=== PATIENT | female | born 1945 | race Caucasian/White ===

== ENCOUNTER 2022-06-18 10:00 | Outpatient (RCR) | payer MEDICARE, OTHER, SELFPAY | END 2023-01-23 23:59 | disposition home or self-care (01) | PROVIDERS: Visit Provider Student in an Organized Health Care Education/Training Program | DX: M54.50 Low back pain, unspecified (principal); Z51.89 Encounter for other specified aftercare | CPT/HCPCS: 97110; 97161; 97530 ==

== ENCOUNTER 2023-11-03 08:15 | Outpatient (RCR) | payer MEDICARE, OTHER, SELFPAY | END 2024-02-03 17:03 | disposition home or self-care (01) | PROVIDERS: Visit Provider Family Medicine | DX: M25.561 Pain in right knee (principal); M25.562 Pain in left knee; G89.29 Other chronic pain; R29.898 Other symptoms and signs involving the musculoskeletal system; Z51.89 Encounter for other specified aftercare | CPT/HCPCS: 97110; 97162 ==

== ENCOUNTER 2023-12-24 07:30 | Day surgery (SDC) | payer MEDICARE, OTHER, SELFPAY ==
[2023-12-24] VITALS (25 sets, daily range): BP systolic 99–151; BP diastolic 50–75; PULSE 51–68; RESP 16; TEMP 35.9–36.6; O2SAT 93–100; BMI 24.6
--- NOTE | 2023-12-24 07:44 | W.PM.H&PU ---
History & Physical Update History & Physical Update H&P Reviewed and patient assessed: No changes noted
--- NOTE | 2023-12-24 07:46 | CRLHL7_ITS ---
For Patients: As a result of the Century Cures Act, medical imaging exams and procedure reports are released immediately into your electronic medical record. You may view this report before your referring provider. If you have questions, please contact your health care provider. Indication: LT TKA Technique: Two views left knee Findings/Impression: Hardware from a left total knee arthroplasty is in satisfactory position. Bone alignment is normal. No sign of acute fracture. Postop changes are within normal limits. Dictated by Oneal Martinez MD @ 12/25/2023 11:07:27 AM (Electronically Signed)
[2023-12-24] MEDS: ACETAMINOPHEN 500 MG TABLET 1000 MG PO ×3 (07:55→20:39)
[2023-12-24] MEDS: OXYCODONE (CR) 10 MG TAB.ER.12H PO (07:55)
[2023-12-24] MEDS: SODIUM CHLORIDE 0.9 % (FLUSH) 10 ML SYRINGE IVF (08:00)
[2023-12-24] MEDS: LACTATED RINGERS 1000 ML 1,000 ML 100 ML IV ×2 (08:00→09:34)
[2023-12-24] MEDS: MIDAZOLAM HCL 1 MG/ML inj IVP (08:55)
[2023-12-24] MEDS: fentaNYL 100 MCG/2 ML inj IVP (08:55)
--- NOTE | 2023-12-24 09:07 | W.PM.NB ---
Nerve Block Nerve Block Time Seen by Provider: 09:00 Date Seen: 12/24/23 Type of block requested by surgeon for post-operative analgesia: adductor canal Side: left Time out performed: Yes Verification of patient name: Yes Verification of date of : Yes Site marking: site marked Name of person performing procedure: Oz Egan Continuous monitoring Was continuous monitoring of O2 sat, B/P, secured entrance monitor, recorded every 15 minutes?: Yes Procedure Checklist: sterile prep, needles and gloves Ultrasound guided. Images saved: Yes Medications given in 5ml increments after negative aspiration: Ropivicaine %: 0.5 mL: 30 Needle gauge: 20 Decadron (mg): 10 Precedex (mcg): 25 Patient tolerated procedure well: Yes Additional comments: injected in 5ml increments after negative aspiration Block Charges Block Charge (with Pro Fee): Femoral Nerve Use of Ultrasound Machine for Block: Yes- US Guidance/pain block
--- NOTE | 2023-12-24 09:08 | P.NB_ITS ---
Nerve Block Nerve Block Time Seen by Provider: 09:00 Date Seen: 12/24/23 Type of block requested by surgeon for post-operative analgesia: geniculars Side: left Time out performed: Yes Verification of patient name: Yes Verification of date of : Yes Site marking: site marked Name of person performing procedure: Oz Egan Continuous monitoring Was continuous monitoring of O2 sat, B/P, cardiac rehabilitation program director, recorded every 15 minutes?: Yes Procedure Checklist: sterile prep, needles and gloves Ultrasound guided. Images saved: No Medications given in 5ml increments after negative aspiration: Ropivicaine %: 0.5 mL: 12 Needle gauge: 25 Patient tolerated procedure well: Yes Additional comments: Injected in 4ml increments after negative aspiration Block Charges Block Charge (with Pro Fee): Genicular Nerve Block Use of Ultrasound Machine for Block: No
--- NOTE | 2023-12-24 09:11 | SUR.PREOP ---
TIME?OUT:?0855 PT/Dorian SHERMAN RN/Anthony WALLER CRNA?VERIFICATION?OF?SURGICAL?SITE,?PROCEDURE,?AND?CONSENT OBTAINED?PRIOR?TO?INVASIVE?PROCEDURE.
[2023-12-24] MEDS: CEFAZOLIN 2 GM in 0.9 % SODIUM CHLORIDE Mini-bag 100 ML IVPB (09:33)
--- NOTE | 2023-12-24 09:52 | W.ANESCHARGE ---
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
--- NOTE | 2023-12-24 10:44 | PM.ORPRC ---
Procedure Note Date of procedure: 12/24/23 Procedure: PREOPERATIVE DIAGNOSIS: 1. Left knee osteoarthritis, primary, severe POSTOPERATIVE DIAGNOSIS: 1. Left knee osteoarthritis, primary, severe PROCEDURE: 1. Left total knee arthroplasty - subvastus SURGEON: Moises Gilbert MD. FLOOR PRESS OPERATOR: Itzel Al PA-C - Of note, a skilled temporary administrative assistant was critical for this case to aid in patient positioning, tissue retraction, limb manipulation/positioning, and closure. ANESTHESIA: Spinal anesthetic EBL: 50ml IMPLANTS: DePuy J&J all cemented TKA - Attune PS femur size 5 narrow, size 3 tibia, 5 poly spacer, 35 mm patella TOURNIQUET: 90 min at 300 torr COMPLICATIONS: None evident INDICATIONS: The patient is a pleasant 78-year-old female who has experienced severe left knee pain and difficulty bearing weight. Workup included x-rays which revealed severe osteoarthrosis in the knee. Given the deformity, the dysfunction, and the pain, as well as the failure of nonoperative management, recommendation was made for surgery. FINDINGS: Extreme osteoarthritic change patellofemoral compartment with substantial erosion into the femur and substantial lateral translation to the patella. Hypoplastic lateral femoral condyle. Degenerative meniscus pathology. Moderate effusion upon entering the joint. DESCRIPTION OF PROCEDURE: Following a thorough discussion of risks, benefits, and alternatives consent was obtained and the left knee was marked. The patient was brought to the operating room and placed supine on the operating table. Induction of anesthesia was undertaken. 1 g IV Ancef and 1 g tranexamic acid was administered within 1 hr of incision preoperatively. Proper time-out was performed identifying proper patient, site, procedure. The operative extremity was prepped and draped in the appropriate sterile fashion using ChloraPrep after the patient was positioned supine with all bony prominences well padded. A longitudinal, anterior, midline skin incision was made starting approximately 3cm proximal to the superior pole of the patella and advanced distal to the tibial tubercle. A subvastus approach was utilized. A medial subperiosteal sleeve was created with knife, liu elevator and curved osteotome. The retropatellar fatpad was resected and the synovium in the suprapatellar pouch excised to visualize the anterior femoral cortex. Femoral preparation was performed via an intramedullary guide. Step drill allowed access into the femoral canal. The distal cutting guide was placed with 5 ? of valgus and 10 mm cut on the distal femur. Femur was sized using a posterior referencing guide in addition to trans epicondylar axis and Michele's line reference in 7 ? of external rotation. This found have a best fit with the sizing noted above. The 4 in 1 cutting block was then placed, and the distal femur shaped accordingly. The box cut was then created and the trial implant inserted to confirm appropriate fit. We turned our attention to the proximal tibia. Extramedullary guide was utilized for cutting with the goal of being 90 degree cut from the mechanical axis of the tibia in the varus/valgus plane utilizing tibial crest as the primary alignment. Initially a 2 mm resection was performed from the medial tibial plateau. Ultimately, balancing was achieved in both flexion and extension in both varus and valgus. The knee was able to achieve full extension as well comfortably. The patella was initially measured and found have a thickness of 17 mm. It was resected back to approximately 14 mm. It was sized to be a best fit with as noted above. This was drilled, trial placed. All trials were placed and found to have an excellent stability and balance. At this stage, trial implants were removed, the knee was thoroughly irrigated with normal saline, and the cement was mixed. After irrigation, the knee was thoroughly dried, and cement placed, with the real tibial and femoral implants placed along with the patella. Trial poly spacer was placed and confirmed to have excellent range of motion and full extension, and the real poly spacer opened and inserted. All extra cement was removed, and a 3 min Betadine soak performed. Finally, a final irrigation round with normal saline was performed. Closure performed with 0 PDS and #0 Stratafix for the quad tendon/retinaculum. 2-0 Vicryl/Stratafix for the subcutaneous and 4-0 Monocryl for subcuticular closure. Dressings were applied and the patient was awoken from anesthesia after the tourniquet deflated and transferred the PACU in stable condition. A skilled temporary administrative assistant was critical for this case to aid in patient positioning, tissue retraction, bone exposure, limb manipulation/positioning, patient safety, and closure. PLAN: 1. Weight bear as tolerated operative extremity. 2. 23 hr perioperative antibiotics. 3. Ice. 4. PT/OT consults for ambulation assistance/mobility education. 5. Social work consult for discharge planning. 6. DVT prophylaxis with at SCDs and aspirin twice daily.
--- NOTE | 2023-12-24 11:39 | P.ANES_ITS ---
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
--- NOTE | 2023-12-24 12:07 | SUR.PHASEI ---
xray here to take images as ordered
[2023-12-24] MEDS: OXYCODONE 5 MG TABLET PO ×4 (14:47→23:24)
[2023-12-24] MEDS: CEFAZOLIN 1 GM in 0.9 % SODIUM CHLORIDE Mini-bag 100 ML IVPB ×2 (15:34→23:24)
--- NOTE | 2023-12-24 16:09 | PC.NURSE ---
End of Shift: patient up to floor at 1230. at bedside. Patient alert and oriented. Denies N/V/SOB. Patient up to BR x1 voided 200cc. Tolerating a reg. diet. Patient up to chair after BR and tolerated activity well. Patient rated pain with movement 4/10 PRN oxy administered x1 with scheduled tylenol. Patient on RA.
--- NOTE | 2023-12-24 16:55 | P.IMCN_ITS ---
<Statement entered by Lorie Tian - 12/24/23 18:21> ILorie personally scribed for Dr. Hayes on 12/24/2023 at 1819. Documented by User: Lorie Tian 12/24/23 18:21 Date of Consult Patient: Haily Patient Consult date: 12/24/23 Requesting Physician: Orthopedics Primary Care Provider: Dr. Varma Consult Narrative Reason for consult: Post-op, HTN, seizures, DM2 Narrative: Carin Cardenas is a 78 year old female presenting inpatient after a L knee replacement. She does not have any medical concerns for the hospital team at this point. Overall she is feeling good and her pain is under control. She rates her current pain a 3 on a scale of 0-10. She states that her pain medication this afternoon helped and she expresses she wants to stay ahead of her pain/stay on a routine schedule. She was able to get out of bed and into the chair with PT and OT this afternoon and it went well. Her is bedside and currently lives with her. She states he will be able to help her at home along with her children that are visiting. Review of Systems Cardio: Denies: chest pain, palpitations, edema, swelling of feet/ankles, lightheadedness or shortness of breath with exertion Resp: Denies: shortness of breath Musculo: Reports: joint pain [facility] Medical History (Updated 12/24/23 @ 18:13 by Lorie Tian) Osteopenia ?M85.80 - Other specified disorders of bone density and structure, unspecified site (ICD-10) Type 2 diabetes mellitus ?E11.9 - Type 2 diabetes mellitus without complications (ICD-10) Seizure disorder ?G40.909 - Epilepsy, unspecified, not intractable, without status epilepticus (ICD-10) HTN (hypertension) ?I10 - Essential (primary) hypertension (ICD-10) Glaucoma ?H40.9 - Unspecified glaucoma (ICD-10) Personal history of colonic polyps ?Z86.010 - Personal history of colonic polyps (ICD-10) Hyperlipidemia ?E78.5 - Hyperlipidemia, unspecified (ICD-10) Anxiety ?F41.9 - Anxiety disorder, unspecified (ICD-10) Hypothyroidism ?E03.9 - Hypothyroidism, unspecified (ICD-10) History of coronary angiogram (2003) ?Z98.890 - Other specified postprocedural states (ICD-10) Meningioma ?D32.9 - Benign neoplasm of meninges, unspecified (ICD-10) Diabetes ?E11.9 - Type 2 diabetes mellitus without complications (ICD-10) Osteoarthritis of patellofemoral joints of both knees ?M17.0 - Bilateral primary osteoarthritis of knee (ICD-10) BCC (basal cell carcinoma), breast ?C44.511 - Basal cell carcinoma of skin of breast (ICD-10) Surgical History (Updated 12/24/23 @ 18:12 by Lorie Tian) History of YAG laser capsulotomy of lens of right eye (06/17/18) ?Z98.41 - Cataract extraction status, right eye (ICD-10) History of wisdom tooth extraction ?K08.409 - Partial loss of teeth, unspecified cause, unspecified class (ICD- 10) Status post left breast lumpectomy ?Z98.890 - Other specified postprocedural states (ICD-10) History of tonsillectomy ?Z90.89 - Acquired absence of other organs (ICD-10) Status post hysteroscopic polypectomy (06/10/12) ?Z98.890 - Other specified postprocedural states (ICD-10) History of phacoemulsification of cataract of both eyes with intraocular lens implantation (04/2013) ?Z98.41 - Cataract extraction status, right eye (ICD-10) ?Z98.42 - Cataract extraction status, left eye (ICD-10) ?Z96.1 - Presence of intraocular lens (ICD-10) Status post biopsy of skin (09/10/23) ?Z98.890 - Other specified postprocedural states (ICD-10) Family History Grandfather Myocardial infarction Mother High blood pressure Social History Smoking Status: Never smoker Do you use any of these nicotine containing products: None Second hand tobacco smoke exposure: No How often do you have a drink containing alcohol: never AUDIT-C Alcohol total score: 0 Non-prescribed substance use: denies use Caffeine: Yes Meds Home Medications and Allergies Home Medications ?Medication ?Instructions ?Recorded ?Confirmed ?Type fenofibrate micronized 134 mg 134 mg PO DAILY 11/07/23 12/24/23 History capsule lamotrigine 100 mg tablet 100 mg PO 3XD 11/07/23 12/24/23 History latanoprost 0.005 % eye drops drp ophthalmic (eye) 11/07/23 11/07/23 History levothyroxine 25 mcg tablet 25 mcg PO DAILY 11/07/23 12/24/23 History metformin 500 mg tablet 500 mg PO DAILY 11/07/23 12/24/23 History metoprolol succinate 50 mg 50 mg PO BID 11/07/23 12/24/23 History tablet,extended release 24 hr triamterene 37.5 1 cap PO DAILY 11/07/23 12/24/23 History mg-hydrochlorothiazide 25 mg capsule aspirin 81 mg tablet,delayed 81 mg PO DAILY 12/22/23 12/24/23 History release cholecalciferol (vitamin D3) 25 1,000 unit PO DAILY 12/22/23 12/24/23 History mcg (1,000 unit) capsule docusate sodium 100 mg capsule 100 mg PO DAILY 12/22/23 12/24/23 History fenofibrate micronized 134 mg 134 mg PO DAILY 12/22/23 12/24/23 History capsule lamotrigine 100 mg tablet 100 mg PO Q12H 12/22/23 12/24/23 History latanoprost 0.005 % eye drops 1 drp ophthalmic (eye) QPM 12/22/23 12/24/23 History levothyroxine 25 mcg capsule 25 mcg PO DAILY 12/22/23 12/24/23 History magnesium 250 mg tablet 250 mg PO DAILY 12/22/23 12/24/23 History Allergies Allergy/AdvReac Type Severity Reaction Status Date / Time No Known Allergies Allergy Unknown Verified 12/24/23 07:48 Exam Const: Vital Signs, click to edit/add: Vital Signs - 24 hr 12/24/23 08:07 12/24/23 08:55 12/24/23 09:00 Temperature 97.8 F Pulse Rate 58 L 54 L 53 L Pulse Rate [Pulse Oximeter] Respiratory Rate 16 16 16 Blood Pressure 134/75 150/73 H 132/61 Blood Pressure [Le ft Arm] Pulse Oximetry 99 100 100 Oxygen Delivery Me thod Room Air Nasal Cannula Nasal Cannula Oxygen Flow Rate 3 3 12/24/23 11:38 12/24/23 11:45 12/24/23 11:50 Temperature 97.3 F L Pulse Rate 57 L 55 L 55 L Pulse Rate [Pulse Oximeter] Respiratory Rate 16 16 16 Blood Pressure 99/50 L 104/59 L 104/59 L Blood Pressure [Le ft Arm] Pulse Oximetry 95 95 95 Oxygen Delivery Me thod Room Air Room Air Room Air Oxygen Flow Rate 12/24/23 11:55 12/24/23 12:01 12/24/23 12:06 Temperature 97.0 F L 97.0 F L Pulse Rate 58 L 54 L 56 L Pulse Rate [Pulse Oximeter] Respiratory Rate 16 16 16 Blood Pressure 110/62 108/59 L 112/59 L Blood Pressure [Le ft Arm] Pulse Oximetry 94 97 97 Oxygen Delivery Me thod Room Air Room Air Room Air Oxygen Flow Rate 12/24/23 12:10 12/24/23 12:20 12/24/23 12:29 Temperature 97.4 F L 96.7 F L 96.7 F L Pulse Rate 60 52 L Pulse Rate [Pulse Oximeter] 52 L Respiratory Rate 16 16 16 Blood Pressure 115/60 117/62 Blood Pressure [Le ft Arm] 117/62 Pulse Oximetry 95 93 93 Oxygen Delivery Me thod Room Air Room Air Room Air Oxygen Flow Rate 12/24/23 12:30 12/24/23 12:45 12/24/23 13:00 Temperature 97.0 F L 97.0 F L 97.0 F L Pulse Rate 52 L 52 L 51 L Pulse Rate [Pulse Oximeter] Respiratory Rate 16 16 16 Blood Pressure 118/62 116/59 L 122/62 Blood Pressure [Le ft Arm] Pulse Oximetry 96 95 98 Oxygen Delivery Me thod Room Air Room Air Room Air Oxygen Flow Rate 12/24/23 13:15 12/24/23 13:45 12/24/23 14:15 Temperature 97.0 F L 97.0 F L 97.0 F L Pulse Rate 62 60 60 Pulse Rate [Pulse Oximeter] Respiratory Rate 16 16 16 Blood Pressure 123/65 120/57 L 123/73 Blood Pressure [Le ft Arm] Pulse Oximetry 94 100 99 Oxygen Delivery Me thod Room Air Room Air Room Air Oxygen Flow Rate 12/24/23 15:00 12/24/23 15:00 12/24/23 15:00 Temperature 97.0 F L Pulse Rate 60 Pulse Rate [Pulse Oximeter] Respiratory Rate 16 Blood Pressure 151/66 H Blood Pressure [Le ft Arm] Pulse Oximetry 99 98 98 Oxygen Delivery Me thod Room Air Room Air Oxygen Flow Rate Common normals: no apparent distress, oriented x3 and alert General appearance: cooperative Orientation/consciousness: Yes oriented to person, Yes oriented to place and Yes oriented to time Resp: Common normals: clear to auscultation bilaterally Auscultation: clear to auscultation bilaterally; no crackles, no rales, no rhonchi, no wheezes and lung sounds not diminished Cardio: Common normals: regular rate, regular rhythm, S1 normal heart sound, S2 normal heart sound, no gallops, no clicks and no murmurs Rate: regular rate Rhythm: regular rhythm Heart sounds: S1 normal and S2 normal Extremity: Left lower extremity: lower leg (no erythema around the surgical site or calf) Left lower leg: inspection Neuro: Common normals: oriented x3 Sensorium/orientation: alert, oriented to person, oriented to place and oriented to time Speech: speech normal Psych: Common normals: thought process normal, cooperative, affect normal and speech normal Speech: normal speech Thought process: normal thought process Assessment and Plan Assessment and plan (1) Osteoarthritis of left knee: Problem comment: bone on bone patellofemoral, mild medial and lateral Status: Acute (2) Status post left knee replacement: Problem comment: - 12/24/2023: Dr. Moises Gilbert, [facility] Status: Acute (3) HTN (hypertension): Problem comment: - Continue current medications while in the hospital. Status: Acute (4) Type 2 diabetes mellitus: Problem comment: - Continue current medications while in the hospital. - Add QID sliding scale insulin while in the hospital. Status: Acute (5) Seizure disorder: Problem comment: - Continue current medications while in the hospital. Status: Acute Plan - No new medical concerns from a hospitalist standpoint. - I agree with perioperative antibiotic administration. - I agree with the VTE prophylaxis. - Will follow with orthopedic surgery team while in the hospital. - Hospitalist team has competed their portion of the discharge orders. Total Time Spent Total Time Spent: 45 minutes Documented by User: Atilio Hayes MD 12/24/23 18:42 Consult Narrative Narrative: Carin Cardenas is a 78 year old female presenting inpatient after a L knee replacement. She does not have any new medical concerns for the hospital team at this point. Overall she is feeling good and her pain is under control. She rates her current pain a 3 on a scale of 0-10. She states that her pain medication this afternoon helped and she expresses she wants to stay ahead of her pain/stay on a routine schedule. She was able to get out of bed and into the chair with PT and OT this afternoon and it went well. Her is bedside and currently lives with her. She states he will be able to help her at home along with her children that are visiting. Review of Systems Status of ROS: Reports: 6 or more systems reviewed and unremarkable except as noted in History and below [facility] Medical History (Updated 12/24/23 @ 18:13 by Lorie Tian) Osteopenia ?M85.80 - Other specified disorders of bone density and structure, unspecified site (ICD-10) Type 2 diabetes mellitus ?E11.9 - Type 2 diabetes mellitus without complications (ICD-10) Seizure disorder ?G40.909 - Epilepsy, unspecified, not intractable, without status epilepticus (ICD-10) HTN (hypertension) ?I10 - Essential (primary) hypertension (ICD-10) Glaucoma ?H40.9 - Unspecified glaucoma (ICD-10) Personal history of colonic polyps ?Z86.010 - Personal history of colonic polyps (ICD-10) Hyperlipidemia ?E78.5 - Hyperlipidemia, unspecified (ICD-10) Anxiety ?F41.9 - Anxiety disorder, unspecified (ICD-10) Hypothyroidism ?E03.9 - Hypothyroidism, unspecified (ICD-10) History of coronary angiogram (2003) ?Z98.890 - Other specified postprocedural states (ICD-10) Meningioma ?D32.9 - Benign neoplasm of meninges, unspecified (ICD-10) Diabetes ?E11.9 - Type 2 diabetes mellitus without complications (ICD-10) Osteoarthritis of patellofemoral joints of both knees ?M17.0 - Bilateral primary osteoarthritis of knee (ICD-10) BCC (basal cell carcinoma), breast ?C44.511 - Basal cell carcinoma of skin of breast (ICD-10) Surgical History (Updated 12/24/23 @ 18:12 by Lorie Tian) History of YAG laser capsulotomy of lens of right eye (06/17/18) ?Z98.41 - Cataract extraction status, right eye (ICD-10) History of wisdom tooth extraction ?K08.409 - Partial loss of teeth, unspecified cause, unspecified class (ICD- 10) Status post left breast lumpectomy ?Z98.890 - Other specified postprocedural states (ICD-10) History of tonsillectomy ?Z90.89 - Acquired absence of other organs (ICD-10) Status post hysteroscopic polypectomy (06/10/12) ?Z98.890 - Other specified postprocedural states (ICD-10) History of phacoemulsification of cataract of both eyes with intraocular lens implantation (04/2013) ?Z98.41 - Cataract extraction status, right eye (ICD-10) ?Z98.42 - Cataract extraction status, left eye (ICD-10) ?Z96.1 - Presence of intraocular lens (ICD-10) Status post biopsy of skin (09/10/23) ?Z98.890 - Other specified postprocedural states (ICD-10) Family History Grandfather Myocardial infarction Mother High blood pressure Social History Smoking Status: Never smoker Do you use any of these nicotine containing products: None Second hand tobacco smoke exposure: No How often do you have a drink containing alcohol: never AUDIT-C Alcohol total score: 0 Non-prescribed substance use: denies use Caffeine: Yes Meds Home Medications and Allergies Home Medications ?Medication ?Instructions ?Recorded ?Confirmed ?Type fenofibrate micronized 134 mg 134 mg PO DAILY 11/07/23 12/24/23 History capsule lamotrigine 100 mg tablet 100 mg PO 3XD 11/07/23 12/24/23 History latanoprost 0.005 % eye drops drp ophthalmic (eye) 11/07/23 11/07/23 History levothyroxine 25 mcg tablet 25 mcg PO DAILY 11/07/23 12/24/23 History metformin 500 mg tablet 500 mg PO DAILY 11/07/23 12/24/23 History metoprolol succinate 50 mg 50 mg PO BID 11/07/23 12/24/23 History tablet,extended release 24 hr triamterene 37.5 1 cap PO DAILY 11/07/23 12/24/23 History mg-hydrochlorothiazide 25 mg capsule aspirin 81 mg tablet,delayed 81 mg PO DAILY 12/22/23 12/24/23 History release cholecalciferol (vitamin D3) 25 1,000 unit PO DAILY 12/22/23 12/24/23 History mcg (1,000 unit) capsule docusate sodium 100 mg capsule 100 mg PO DAILY 12/22/23 12/24/23 History fenofibrate micronized 134 mg 134 mg PO DAILY 12/22/23 12/24/23 History capsule lamotrigine 100 mg tablet 100 mg PO Q12H 12/22/23 12/24/23 History latanoprost 0.005 % eye drops 1 drp ophthalmic (eye) QPM 12/22/23 12/24/23 History levothyroxine 25 mcg capsule 25 mcg PO DAILY 12/22/23 12/24/23 History magnesium 250 mg tablet 250 mg PO DAILY 12/22/23 12/24/23 History Allergies Allergy/AdvReac Type Severity Reaction Status Date / Time No Known Allergies Allergy Unknown Verified 12/24/23 07:48 Assessment and Plan Assessment and plan (1) Osteoarthritis of left knee: Problem comment: bone on bone patellofemoral, mild medial and lateral Status: Acute (2) Status post left knee replacement: Problem comment: - 12/24/2023: Dr. Moises Gilbert, [facility] Status: Acute (3) HTN (hypertension): Problem comment: - Continue current medications while in the hospital. Status: Acute (4) Type 2 diabetes mellitus: Problem comment: - Continue current medications while in the hospital. - Add QID sliding scale insulin while in the hospital. Status: Acute (5) Seizure disorder: Problem comment: - Continue current medications while in the hospital. Status: Acute
[2023-12-24] MEDS: ASPIRIN 81 MG TABLET EC PO (20:39)
[2023-12-24] MEDS: SENNOSIDES 1 TAB TABLET 2 TAB PO (20:39)
[2023-12-24] MEDS: lamoTRIgine 100 MG TABLET 200 MG PO (21:32)
[2023-12-24] MEDS: INSULIN ASPART 100 UNIT/ML SUBCUT (21:33)
--- NOTE | 2023-12-24 23:34 | PC.NURSE ---
End of Shift: Patient pleasant and cooperative. Afebrile. Dressing to left knee C/D/I. CMS intact. Up to chair and bathroom with 1 assist, walker and gait belt. Tolerating regular diet with no nausea. PRN Oxycodone x3 for left knee pain up to 01/13.
[2023-12-25] MEDS: ACETAMINOPHEN 500 MG TABLET 1000 MG PO ×2 (02:14→08:51)
[2023-12-25 02:16] VITALS: BP 114/59; PULSE 60; RESP 16; TEMP 36.6; O2SAT 96
[2023-12-25] MEDS: LEVOTHYROXINE 25 MCG TABLET PO (06:05)
[2023-12-25 06:54] LABS: Basophils Absolute Auto 0.02 K/uL (0.00-0.30); Basophils Percent Auto 0.2 % (0.0-3.0); Hematocrit 32.9 % (33.0-51.0); Hemoglobin* 10.7 gm/dL (12.0-16.0); Immature Granulocytes Abs Auto 0.02 K/uL (0.00-0.30); Immature Granulocytes Pct Auto 0.2 %; Lymphocytes Percent Auto 12.4 % (20-44); Mean Corpuscular HGB Conc 33 gm/dL (32-36); Mean Corpuscular Hemoglobin 31 pg (26-34); Mean Corpuscular Volume 95 fL (80-100); Monocytes Percent Auto 11.7 % (0.0-11.0); Neutrophils Percent Auto 75.5 % (42.0-72.0); Platelet Count* 261 K/uL (140-440); RDW Coefficient of Variation % 12.4 % (11.5-15.5); Red Blood Count 3.45 m/uL (4.00-5.20); White Blood Count* 10.31 K/uL (4.50-11.00)
--- NOTE | 2023-12-25 06:57 | PC.NURSE ---
Pt is alert and oriented x3. Afebrile. Pt reports 3/10 pain in left knee, pain managed with cold pack, and scheduled and PRN medications.?Pt?s left knee dressing is CDI, slight bruising to knee. Pt is up SBA with walker and gait belt, voiding, and tolerating a regular diet. ?
[2023-12-25 07:00] VITALS: BP 112/56; PULSE 67; RESP 16; TEMP 36.4; O2SAT 95
[2023-12-25 07:00] LABS: Slide Review Reflex No
[2023-12-25 07:04] LABS: Potassium* 4.5 mmol/L (3.6-5.1); Sodium* 132 mmol/L (135-149)
[2023-12-25 07:07] LABS: Blood Urea Nitrogen* 23 mg/dL (7-30); Creatinine* 0.6 mg/dL (0.5-1.5); Est. Creatinine Clearance* 35.49; Estimated Glomerular Filt Rate 91 ml/min
[2023-12-25] MEDS: CEFAZOLIN 1 GM in 0.9 % SODIUM CHLORIDE Mini-bag 100 ML IVPB (07:19)
[2023-12-25] MEDS: SENNOSIDES 1 TAB TABLET 2 TAB PO (08:52)
[2023-12-25] MEDS: ASPIRIN 81 MG TABLET EC PO (08:52)
[2023-12-25] MEDS: OXYCODONE 5 MG TABLET PO (08:52)
[2023-12-25] MEDS: lamoTRIgine 100 MG TABLET 200 MG PO (09:26)
--- NOTE | 2023-12-25 11:10 | P.ORPN_ITS ---
Subjective Subjective Date Seen: 12/25/23 Principal diagnosis: Status postop day 1 left total knee arthroplasty Interval history: Patient reports feeling exhausted after physical therapy. She is feeling lightheaded and woozy, having little oral intake today besides some yogurt. She has not received her morning diabetes medicines or insulin sliding scale. No acute events over night. Pain managed with scheduled and PRN medications, ice. DVT prophylaxis: 81 mg aspirin by mouth twice daily, SCDs, walking. Denies fevers, chills, aches, N/V, CP, SOB/HARVEY. No flatus. Ortho Exam Narrative Exam Narrative: -Patient appears comfortable; no apparent acute distress -Alert and oriented times 3 -Operative knee mildly swollen; soft tissues supple; no ecchymosis; no erythematous streaking Warmth appropriate -Surgical dressing clean, dry, intact; no drainage -Bilateral calfs soft; no significant swelling, edema, tenderness, erythema, discoloration, warmth, or palpable cords -2+ DP/PT pulses, intact dermatomes and myotomes distally (5/5 strength) Const Vital Signs, click to edit/add: Vital Signs - 24 hr 12/24/23 11:38 12/24/23 11:45 12/24/23 11:50 Temperature 97.3 F L Pulse Rate 57 L 55 L 55 L Pulse Rate [Pulse Oximeter] Respiratory Rate 16 16 16 Blood Pressure 99/50 L 104/59 L 104/59 L Blood Pressure [Left Arm] Pulse Oximetry 95 95 95 Oxygen Delivery Method Room Air Room Air Room Air 12/24/23 11:55 12/24/23 12:01 12/24/23 12:06 Temperature 97.0 F L 97.0 F L Pulse Rate 58 L 54 L 56 L Pulse Rate [Pulse Oximeter] Respiratory Rate 16 16 16 Blood Pressure 110/62 108/59 L 112/59 L Blood Pressure [Left Arm] Pulse Oximetry 94 97 97 Oxygen Delivery Method Room Air Room Air Room Air 12/24/23 12:10 12/24/23 12:20 12/24/23 12:29 Temperature 97.4 F L 96.7 F L 96.7 F L Pulse Rate 60 52 L Pulse Rate [Pulse Oximeter] 52 L Respiratory Rate 16 16 16 Blood Pressure 115/60 117/62 Blood Pressure [Left Arm] 117/62 Pulse Oximetry 95 93 93 Oxygen Delivery Method Room Air Room Air Room Air 12/24/23 12:30 12/24/23 12:45 12/24/23 13:00 Temperature 97.0 F L 97.0 F L 97.0 F L Pulse Rate 52 L 52 L 51 L Pulse Rate [Pulse Oximeter] Respiratory Rate 16 16 16 Blood Pressure 118/62 116/59 L 122/62 Blood Pressure [Left Arm] Pulse Oximetry 96 95 98 Oxygen Delivery Method Room Air Room Air Room Air 12/24/23 13:15 12/24/23 13:45 12/24/23 14:15 Temperature 97.0 F L 97.0 F L 97.0 F L Pulse Rate 62 60 60 Pulse Rate [Pulse Oximeter] Respiratory Rate 16 16 16 Blood Pressure 123/65 120/57 L 123/73 Blood Pressure [Left Arm] Pulse Oximetry 94 100 99 Oxygen Delivery Method Room Air Room Air Room Air 12/24/23 15:00 12/24/23 15:00 12/24/23 15:00 Temperature 97.0 F L Pulse Rate 60 Pulse Rate [Pulse Oximeter] Respiratory Rate 16 Blood Pressure 151/66 H Blood Pressure [Left Arm] Pulse Oximetry 99 98 98 Oxygen Delivery Method Room Air Room Air 12/24/23 16:00 12/24/23 17:00 12/24/23 18:00 Temperature 97.3 F L 97.6 F Pulse Rate 62 66 68 Pulse Rate [Pulse Oximeter] Respiratory Rate 16 16 16 Blood Pressure 124/63 127/59 L 127/60 Blood Pressure [Left Arm] Pulse Oximetry 98 96 96 Oxygen Delivery Method Room Air Room Air Room Air 12/24/23 19:00 12/24/23 23:00 12/24/23 23:34 Temperature 97.0 F L 97.8 F Pulse Rate Pulse Rate [Pulse Oximeter] 66 60 Respiratory Rate 16 16 Blood Pressure Blood Pressure [Left Arm] 112/64 112/61 Pulse Oximetry 99 100 100 Oxygen Delivery Method Room Air Room Air 12/24/23 23:34 12/25/23 02:16 12/25/23 07:00 Temperature 97.8 F Pulse Rate Pulse Rate [Pulse Oximeter] 60 Respiratory Rate 16 16 Blood Pressure Blood Pressure [Left Arm] 114/59 L Pulse Oximetry 100 96 95 Oxygen Delivery Method Room Air Room Air 12/25/23 07:00 12/25/23 07:00 12/25/23 07:00 Temperature 97.6 F Pulse Rate Pulse Rate [Pulse Oximeter] 67 67 Respiratory Rate 16 16 16 Blood Pressure Blood Pressure [Left Arm] 112/56 L Pulse Oximetry 95 95 Oxygen Delivery Method Room Air Room Air Assessment and Plan Assessment and plan (1) Osteoarthritis of left knee: Problem details: bone on bone patellofemoral, mild medial and lateral Status: Acute (2) Status post left knee replacement: Problem details: - 12/24/2023: Dr. Moises Gilbert, [facility] Status: Acute (3) HTN (hypertension): Problem details: - Continue current medications while in the hospital. Status: Acute (4) Type 2 diabetes mellitus: Problem details: - Continue current medications while in the hospital. - Add QID sliding scale insulin while in the hospital. Status: Acute (5) Seizure disorder: Problem details: - Continue current medications while in the hospital. Status: Acute Plan - Complete 23 hour perioperative antibiotics. - PT/OT consult for education and assistance. - Social work consult for discharge planning - Prescribed analgesics as needed - DVT prophylaxis: 81 mg aspirin by mouth twice daily and SCDs. No need for the Payam bandaging - Anticipation is for discharge to home with spouse, 12/25/2023 if the patient remains medically stable, pain is controlled, and they are safe with mobilization. - I believe her lightheadedness is due to low food intake and oral narcotic medications; she will try a small meal/snack now.
[2023-12-25] MEDS: ONDANSETRON 2 MG/ML inj 4 MG IVP (12:14)
--- NOTE | 2023-12-25 15:08 | PC.NURSE ---
Patient discharged at 1240 to home accompanied by spouse. Patients dressing to C/D/I. IV removed intact. Patient VSS, BP on the softer side, MD aware. BP med held per RANDY Humphrey. Patient c/o slight nausea and PRN zofran administered x1. PRN oxy administered prior to therapies. Patient signed discharge papers and belongings sheet. Patient verbalized understanding.
== END 2023-12-25 12:40 | disposition home or self-care (01) ==
LOC: MEDSURG 12-25 13:59 → OR 12-25 13:59
PROVIDERS: Visit Provider Orthopaedic Surgery Sports Medicine
PROC: (CPT 27447; principal; 2023-12-24 09:15)
DX: M17.12 Unilateral primary osteoarthritis, left knee (principal); G89.18 Other acute postprocedural pain; E11.9 Type 2 diabetes mellitus without complications; R42 Dizziness and giddiness; I10 Essential (primary) hypertension; G40.909 Epilepsy, unspecified, not intractable, without status epilepticus; M85.80 Other specified disorders of bone density and structure, unspecified site; F41.9 Anxiety disorder, unspecified; E03.9 Hypothyroidism, unspecified; E78.5 Hyperlipidemia, unspecified
CPT/HCPCS: 27447; 01402; 36415; 64447; 64454; 73560; 76942; 82565; 82962; 84132; 84295; 84520; 85025; 97110; 97116; 97161; 97165; 97530; 97535; 99100; A9270; C1776; J0690; J1100; J2250; J2405; J2704; J2795; J3010; J7120

== ENCOUNTER 2024-01-27 09:12 | Emergency (ER) | payer MEDICARE, OTHER, SELFPAY ==
[2024-01-27 09:22] VITALS: BP 148/73; PULSE 70; RESP 18; TEMP 36.4; O2SAT 98; BMI 23.9
--- NOTE | 2024-01-27 11:13 | ED.GENADULT ---
HPI - General Adult General Chief complaint: Altered Mental Status Stated complaint: Altered mental status, repeating things Time Seen by Provider: 01/27/24 10:26 History of Present Illness HPI narrative: This 78-year-old female comes in with her because of some temporary confusion in her thinking during which time also her speech was not so well understood. This happened while her was driving and she was a passenger in the car. Her symptoms have completely resolved. The patient states that she awoke this morning and did not feel quite right and took a home test which was negative for COVID. She has not had any fever or dysuria or cough symptoms. She does have a remote history of a meningioma that was removed surgically 18 years ago. She had 2 ups aunt's seizures afterwards and is following with a neurologist annually and has been doing well. She does take lamotrigine. Today she did not show any sign of seizure activity that was involuntary motor activity. She does not report any headache. She arrives here with normal vital signs and states that she feels back to normal. She did have her left knee replaced surgically a month or 2 ago and has been undergoing physical therapy. She has been taking 2 aspirin daily up until last week. She does not report any increased leg swelling and has not had any chest pain or shortness of breath. Related Data Home Medications ?Medication ?Instructions ?Recorded ?Confirmed fenofibrate micronized 134 mg 134 mg PO DAILY 11/07/23 01/01/24 capsule lamotrigine 100 mg tablet 100 mg PO 3XD 11/07/23 01/01/24 latanoprost 0.005 % eye drops drp ophthalmic (eye) 11/07/23 01/01/24 levothyroxine 25 mcg tablet 25 mcg PO DAILY 11/07/23 01/01/24 metformin 500 mg tablet 500 mg PO DAILY 11/07/23 01/01/24 metoprolol succinate 50 mg 50 mg PO BID 11/07/23 01/01/24 tablet,extended release 24 hr triamterene 37.5 1 cap PO DAILY 11/07/23 01/01/24 mg-hydrochlorothiazide 25 mg capsule aspirin 81 mg tablet,delayed 81 mg PO DAILY 12/22/23 01/01/24 release cholecalciferol (vitamin D3) 25 1,000 unit PO DAILY 12/22/23 01/01/24 mcg (1,000 unit) capsule docusate sodium 100 mg capsule 100 mg PO DAILY 12/22/23 01/01/24 fenofibrate micronized 134 mg 134 mg PO DAILY 12/22/23 01/01/24 capsule lamotrigine 100 mg tablet 100 mg PO Q12H 12/22/23 01/01/24 latanoprost 0.005 % eye drops 1 drp ophthalmic (eye) QPM 12/22/23 01/01/24 levothyroxine 25 mcg capsule 25 mcg PO DAILY 12/22/23 01/01/24 magnesium 250 mg tablet 250 mg PO DAILY 12/22/23 01/01/24 Previous Rx's ?Medication ?Instructions ?Recorded acetaminophen 500 mg capsule 500 - 1,000 mg (1 - 2 x 500 mg) PO 12/24/23 Q6H PRN pain #100 caps aspirin 81 mg chewable tablet 81 mg PO BID for DVT prophylaxis 12/24/23 (Aspirin Childrens) 30 days #60 tabs sennosides 8.6 mg tablet (Senna 17.2 mg (2 x 8.6 mg) PO BID PRN 12/25/23 Lax) constipation #100 tabs sennosides 8.6 mg-docusate sodium 1 - 4 tab-cap (1 - 4 x 8.6-50 mg) 01/01/24 50 mg tablet (Senna-S) PO QHS #60 tabs oxycodone 5 mg tablet 2.5 - 5 mg (0.5 - 1 x 5 mg) PO 01/12/24 Q4-6H PRN Pain #14 tabs Allergies Allergy/AdvReac Type Severity Reaction Status Date / Time No Known Allergies Allergy Unknown Verified 01/01/24 08:56 Review of Systems Status of ROS: Reports: 10 or more systems reviewed and unremarkable except as noted in History and below Narrative: Constitutional: No fevers, no weight gain or loss. Eyes: No discharge. No vision changes. HENT: No congestion, no sore throat, no ear pain. Cardiovascular: No chest pain, no palpitations. Respiratory: No shortness of breath, no wheezes, no cough. Gastrointestinal: No abdominal pain, no vomiting, no diarrhea. Genitourinary: No dysuria, no hematuria. Musculoskeletal: Normal range of motion. Skin: No rashes, no pruritis. Neurological: No dizziness, weakness, sensory change . Her reports difficulty understanding her for brief time while driving in the car. Endo/Heme/Allergies: No bruising or bleeding. No polydipsia. Pysch: no suicidality, no anxiety, no insomnia. All other systems reviewed and are negative. [facility] Medical History (Updated 01/27/24 @ 12:33 by Michelet Alexander MD) Osteopenia ?M85.80 - Other specified disorders of bone density and structure, unspecified site (ICD-10) Type 2 diabetes mellitus ?E11.9 - Type 2 diabetes mellitus without complications (ICD-10) Seizure disorder ?G40.909 - Epilepsy, unspecified, not intractable, without status epilepticus (ICD-10) HTN (hypertension) ?I10 - Essential (primary) hypertension (ICD-10) Glaucoma ?H40.9 - Unspecified glaucoma (ICD-10) Personal history of colonic polyps ?Z86.010 - Personal history of colonic polyps (ICD-10) Hyperlipidemia ?E78.5 - Hyperlipidemia, unspecified (ICD-10) Anxiety ?F41.9 - Anxiety disorder, unspecified (ICD-10) Hypothyroidism ?E03.9 - Hypothyroidism, unspecified (ICD-10) History of coronary angiogram (2003) ?Z98.890 - Other specified postprocedural states (ICD-10) Meningioma ?D32.9 - Benign neoplasm of meninges, unspecified (ICD-10) Diabetes ?E11.9 - Type 2 diabetes mellitus without complications (ICD-10) Osteoarthritis of patellofemoral joints of both knees ?M17.0 - Bilateral primary osteoarthritis of knee (ICD-10) BCC (basal cell carcinoma), breast ?C44.511 - Basal cell carcinoma of skin of breast (ICD-10) Surgical History (Updated 01/23/24 @ 12:15 by Sandra Duffy) History of total left knee replacement (12/24/23) ?Z96.652 - Presence of left artificial knee joint (ICD-10) History of YAG laser capsulotomy of lens of right eye (06/17/18) ?Z98.41 - Cataract extraction status, right eye (ICD-10) History of wisdom tooth extraction ?K08.409 - Partial loss of teeth, unspecified cause, unspecified class (ICD-10) Status post left breast lumpectomy ?Z98.890 - Other specified postprocedural states (ICD-10) History of tonsillectomy ?Z90.89 - Acquired absence of other organs (ICD-10) Status post hysteroscopic polypectomy (06/10/12) ?Z98.890 - Other specified postprocedural states (ICD-10) History of phacoemulsification of cataract of both eyes with intraocular lens implantation (04/2013) ?Z98.41 - Cataract extraction status, right eye (ICD-10) ?Z98.42 - Cataract extraction status, left eye (ICD-10) ?Z96.1 - Presence of intraocular lens (ICD-10) Status post biopsy of skin (09/10/23) ?Z98.890 - Other specified postprocedural states (ICD-10) Family History Grandfather Myocardial infarction Mother High blood pressure Social History Smoking Status: Never smoker Do you use any of these nicotine containing products: None Second hand tobacco smoke exposure: No How often do you have a drink containing alcohol: never AUDIT-C Alcohol total score: 0 Non-prescribed substance use: denies use Caffeine: Yes Exam Narrative: Exam Narrative: Constitutional: Well-developed, well-nourished, no acute distress. HEENT: Normocephalic, atraumatic. Neck: Normal range of motion. Nontender. Supple. Heart: Regular. No murmurs. Normal rate. Intact distal pulses. Lungs: Clear to auscultation. No chest discomfort. No wheezes, rhonchi, or rales. Abdomen: Normal bowel sounds. Nontender. No rebound tenderness. Genitalia: Deferred. Back: No midline tenderness. Normal range of motion. Extremities: Normal range of motion. No injury. Skin: Intact. No rash. Warm. No erythema or pallor. Neurologic: No altered sensation. No weakness. Alert and oriented. No facial asymmetry. Tongue is midline. Udoreg-fx-yfct is normal. No pronator drift. Motor Analyst strength is equal bilaterally. Able to raise each leg from the bed. Speech is normal. Cognition is also normal. Psychiatric: No suicidality. No anxiety or depression. No insomnia. Nursing notes and vitals signs are reviewed. Const: Vital Signs, click to edit/add: Vital Signs - 24 hr 01/27/24 09:22 Temperature 97.5 F L Pulse Rate [Right Pulse Oximeter] 70 Respiratory Rate 18 Blood Pressure [Ri ght Upper Arm] 148/73 H Pulse Oximetry 98 Oxygen Delivery Me thod Room Air Course Vital Signs Vital signs: Initial Vital Signs Temperature 97.5 F L 01/27/24 09:22 Temperature Source Temporal Artery Scan 01/27/24 09:22 Pulse Rate 70 01/27/24 09:22 Pulse Rhythm Regular 01/27/24 09:22 Pulse Strength 3+ Normal 01/27/24 09:22 Respiratory Rate 18 01/27/24 09:22 Blood Pressure 148/73 H 01/27/24 09:22 Blood Pressure Mean 98 01/27/24 09:22 Blood Pressure Position Sitting 01/27/24 09:22 Pulse Oximetry 98 01/27/24 09:22 Oxygen Delivery Method Room Air 01/27/24 09:22 Vital Signs Temperature 97.5 F L 01/27/24 09:22 Pulse Rate 70 01/27/24 09:22 Respiratory Rate 18 01/27/24 09:22 Blood Pressure 148/73 H 01/27/24 09:22 Pulse Oximetry 98 01/27/24 09:22 Oxygen Delivery Method Room Air 01/27/24 09:22 Temperature 97.5 F L 01/27/24 09:22 Pulse Rate 70 01/27/24 09:22 Respiratory Rate 18 01/27/24 09:22 Blood Pressure 148/73 H 01/27/24 09:22 Pulse Oximetry 98 01/27/24 09:22 Oxygen Delivery Method Room Air 01/27/24 09:22 Medical Decision Making MDM Narrative Medical decision making narrative: This patient comes in for evaluation of a brief episode where she had trouble forming words but did not have any other neurologic deficit. She does have a remote history of seizure which sounds to be more like an absent seizure. 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 She has been following with a neurologist throughout these years and everything has been good. She does take Lamictal. She had her knee replaced about a month ago and prior to this was taking a baby aspirin daily. She was on a more aggressive anticoagulant post surgery which has now been discontinued and she has not restarted aspirin. I did advise her to restart baby aspirin daily. I did acquire labs which returned with normal findings, at least with no results that can explain her symptoms earlier today. I did also discuss the role of imaging. The patient does follow with a neurologist and has had numerous imaging studies that have been normal. In a process of shared decision-making she declined any such imaging today saying that her neurologic exam and vital signs are normal. Lab Data Labs: Lab Results 01/27/24 Range/Units 11:20 WBC 7.07 (4.50-11.00) K/uL RBC 3.94 L (4.00-5.20) m/uL Hgb 12.5 (12.0-16.0) gm/dL Hct 38.4 (33.0-51.0) % MCV 98 (80-100) fL MCH 32 (26-34) pg MCHC 33 (32-36) gm/dL RDW Coeff of Brice 13.1 (11.5-15.5) % Plt Count 363 (140-440) K/uL Neut % (Auto) 76.2 H (42.0-72.0) % Lymph % (Auto) 13.6 L (20-44) % Dickey % (Auto) 7.8 (0.0-11.0) % Eos % (Auto) 1.0 (0.0-7.0) % Baso % (Auto) 1.3 (0.0-3.0) % Neut # (Auto) 5.40 (1.7-7.0) K/uL Lymph # (Auto) 1.00 (0.90-2.90) K/uL Dickey # (Auto) 0.60 (0.00-0.90) K/UL Eos # (Auto) 0.07 (0.00-0.50) K/uL Baso # (Auto) 0.09 (0.00-0.30) K/uL Abs Immat Gran (auto) 0.01 (0.00-0.30) K/uL Imm/Tot Granulo (auto) 0.1 % Sodium 134 L (135-149) mmol/L Potassium 4.3 (3.6-5.1) mmol/L Chloride 101 (96-114) mmol/L Carbon Dioxide 27 (20-32) mmol/L Anion Gap 6 L (7-15) mEq/L BUN 28 (7-30) mg/dL Creatinine 0.6 (0.5-1.5) mg/dL Estimated Creat Clear 37.12 Estimated GFR 91 ml/min Glucose 115 (60-115) mg/dL Calcium 9.7 (8.4-10.6) mg/dL Discharge Plan Discharge Clinical Impression: Altered mental status Patient Disposition: Home w/ Parent or Adult Condition: Improved Additional Instructions: Continue current plans. Follow up with MD or return if symptoms are recurrent or worsening. Prescriptions: No Action metoprolol succinate 50 mg tablet extended release 24 hr 50 mg PO BID latanoprost 0.005 % drops ophthalmic (eye) levothyroxine 25 mcg tablet 25 mcg PO DAILY fenofibrate micronized 134 mg capsule 134 mg PO DAILY triamterene-hydrochlorothiazid 37.5-25 mg capsule 1 cap PO DAILY metformin 500 mg tablet 500 mg PO DAILY lamotrigine 100 mg tablet 100 mg PO 3XD sennosides-docusate sodium [Senna-S] 8.6-50 mg tablet 1 - 4 tab-cap PO QHS Qty: 60 0RF Rx Instructions: Hold medication if experiencing loose stools. aspirin 81 mg tablet,delayed release (DR/EC) 81 mg PO DAILY Hold Instructions: Resume on 01/24/24. cholecalciferol (vitamin D3) 25 mcg (1,000 unit) capsule 1,000 unit PO DAILY docusate sodium 100 mg capsule 100 mg PO DAILY fenofibrate micronized 134 mg capsule 134 mg PO DAILY lamotrigine 100 mg tablet 100 mg PO Q12H Patient Comments: 2 tablets every morning and 1 tablet every evening latanoprost 0.005 % drops 1 drp ophthalmic (eye) QPM levothyroxine 25 mcg capsule 25 mcg PO DAILY magnesium 250 mg tablet 250 mg PO DAILY aspirin [Aspirin Childrens] 81 mg tablet,chewable 81 mg PO BID 30 Days Qty: 60 0RF acetaminophen 500 mg capsule 500 - 1,000 mg PO Q6H MDD 4000mg per day PRN (Reason: pain) Qty: 100 0RF sennosides [Senna Lax] 8.6 mg Tablet 17.2 mg PO BID PRN (Reason: constipation) Qty: 100 0RF oxycodone 5 mg tablet 2.5 - 5 mg PO Q4-6H MDD 6 tabs per day PRN (Reason: Pain) Qty: 14 0RF Rx Instructions: Minimize, continue to wean as tolerated. Discontinue as soon as possible. Follow Up/Referrals: Provider,Not a Local [Staff Physician] - Stand Alone Forms: [employer] Info Instructions
--- OUTSIDE RECORDS SUMMARY | 2024-01-27 11:19 | XMS_ITS | Referral Summary ---
Author Organization [facility] Address [address] [place] [address] Care Team Providers Care Family Caseworker Name Role Phone Vanessa Varma MD Primary Care Provider [phone] Cassie Perez MD Unavailable Cassie Perez MD Unavailable Encounters Date Type Department Care Team Description 01/14/2024 Telephone M [facility] [address], [address] [place] [address] Cassie Perez MD Forms (Received DMV(LOC) form.) 12/15/2023 10:30 AM CDT Virtual Visit M Ish [facility] [address], [address] [place] [address] Cassie Perez MD 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 Active MetFORMIN & Diet Manage Prod (METFORMIN HCL-NUTRITIONAL SUPL) 500 MG MISCIndications:Locali zation-related (focal) (partial) epilepsy and epileptic syndromes with complex partial seizures, without mention of intractable epilepsy Take by mouth daily (with dinner). Active latanoprost (XALATAN) 0.005 % ophthalmic solutionIndications:Lo calization-related (focal) (partial) epilepsy and epileptic syndromes with complex partial seizures, without mention of intractable epilepsy At Bedtime 1 drop each eye. Active triamterene-hydrochlor othiazide (DYAZIDE) 37.5-25 MG per capsuleIndications:Loc alization-related (focal) (partial) epilepsy and epileptic syndromes with complex partial seizures, without mention of intractable epilepsy Take by mouth every morning. Active Fenofibrate Micronized 134 MG CAPSIndications:Locali zation-related (focal) (partial) epilepsy and epileptic syndromes with complex partial seizures, without mention of intractable epilepsy Take by mouth daily. Active vitamin E 400 UNITS TABSIndications:Locali zation-related (focal) (partial) epilepsy and epileptic syndromes with complex partial seizures, without mention of intractable epilepsy Take 400 Units by mouth daily. Active vitamin D3 (CHOLECALCIFEROL) 1000 units (25 mcg) tabletIndications:Loca lization-related (focal) (partial) epilepsy and epileptic syndromes with complex partial seizures, without mention of intractable epilepsy Take by mouth daily. Active fish oil-omega-3 fatty acids 1000 MG capsuleIndications:Loc alization-related (focal) (partial) epilepsy and epileptic syndromes with complex partial seizures, without mention of intractable epilepsy Take by mouth. 2000 mg daily Active Multiple Vitamin (MULTIVITAMINS PO)Indications:Localiz ation-related (focal) (partial) epilepsy and epileptic syndromes with complex partial seizures, without mention of intractable epilepsy Take by mouth daily. Active CALCIUM POIndications:Localiza tion-related (focal) (partial) epilepsy and epileptic syndromes with complex partial seizures, without mention of intractable epilepsy Take by mouth daily. Active aspirin 81 MG tabletIndications:Loca lization-related (focal) (partial) epilepsy and epileptic syndromes with complex partial seizures, without mention of intractable epilepsy Take by mouth daily. Active magnesium 250 MG tabletIndications:Loca lization-related (focal) (partial) epilepsy and epileptic syndromes with complex partial seizures, without mention of intractable epilepsy Take 1 tablet by mouth daily. 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 270 tablet 3 12/15/2023 Active Active Problems Problem Noted Date Diagnosed Date Partial epilepsy with impairment of consciousnes s 08/11/2015 Immunizations Name Administration Dates Next Due Flu 65+ Years 04/09/2019,04/08/2017 [id number] Novel Flu 08/08/2009 Influenza (H1N1) 08/08/2009 Influenza (High Dose) 3 keith nt vaccine 05/28/2016,05/23/2015,05/20/2014 Influenza (IIV3) PF 04/27/2013, 2,04/09/2011,2009,05/02/2008,05/28/2005,06/19/2004 Influenza Vaccine 65+ (Fluzone HD) 03/27/2020 Influenza Vaccine >6 months,quad, PF 04/10/2018 Influenza Vaccine IM Ages 6- 35 Months 4 Valent (PF) 03/27/2009 Pneumo Conj 13-V (2010&after) 05/28/2016 Pneumococcal 23 valent 12/04/2010 TD,PF 7+ (Tenivac) 12/19/2005,07/21/2005 TDAP Vaccine (Adacel) 04/09/2011 Zoster vaccine, live 01/14/2012 Social History Tobacco Use Types Packs/Day Years Used Date Smoking Tobacco: Never Passive Smoke Exposure: Never Smokeless Tobacco: Never Tobacco Cessation:Counseling Given: Not Answered Alcohol Use Standard Drinks/Week Comments No 0 (1 standard drink = 0.6 oz pur e alcohol) PHQ-2 Answer Date Recorded PHQ-2 Score 0 12/15/2023 Adolescent Education Answer Date Record ed Getting School Help Needed Not on file 04/04 Sex and Gender Information Value Date Recorded Sex Assigned at Not on file Gender Identity Not on file Sexual Orientation Not on file Last Filed Vital Signs Vital Sign Reading Time Taken Comments Blood Pressure 144/79 09/15/2019 11:34 AM CDT Pulse 64 09/15/2019 11:34 AM CDT Temperature 36.7 ??C (98 ??F) 06/18/2018 2:02 PM [facility] Respiratory Rate 12 07/15/2017 10:56 AM [facility] Oxygen Saturation - - Inhaled Oxygen Concentration - - Weight 61.2 kg (135 lb) 12/15/2023 10:09 AM CDT Height 158.8 cm (5' 2.5) 12/15/2023 10:09 AM CD T Body Mass Index 24.3 12/15/2023 10:09 AM CDT Plan of Treatment Not on file Procedures Procedure Name Priority Date/Time Associated Diagnosis Comments COMPREHENSIVE METABOLIC PANEL Routine 07/15/2017 11:53 AM [facility] 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) from Last 3 Months or Most Recently Relevant to Health Maintenance Results * (ABNORMAL) Comprehensive metabolic panel (07/15/2017 11:53 AM [facility]) Sodium 144 133 - 144 mmol/L 07/15/2017 11:[address] [facility] Potassium 5.6(H) 3.4 - 5.3 mmol/L 07/15/2017 11:[address] [facility] Chloride 107 94 - 109 mmol/L 07/15/2017 11:[address] [facility] Carbon Dioxide 27 20 - 32 mmol/L 07/15/2017 11:[address] [facility] Anion Gap 11 3 - 14 mmol/L 07/15/2017 11:[address] [facility] Glucose 94 70 - 99 mg/dL 07/15/2017 11:[address] [facility] Urea Nitrogen 26 7 - 30 mg/dL 07/15/2017 11:[address] [facility] Creatinine 0.80 0.52 - 1.04 mg/dL 07/15/2017 11:[address] [facility] GFR Estimate 70 >60 mL/min/1.7 m2 07/15/2017 11:[address] [facility] Comment:Non GFR Calc GFR Estimate If Black 84 >60 mL/min/1.7 m2 07/15/2017 11:[address] [facility] Comment: GFR Calc Calcium 9.7 8.5 - 10.1 mg/dL 07/15/2017 11:[address] [facility] Bilirubin Total 0.2 0.2 - 1.3 mg/dL 07/15/2017 11:[address] [facility] Albumin 4.3 3.4 - 5.0 g/dL 07/15/2017 11:[address] [facility] Protein Total 7.4 6.8 - 8.8 g/dL 07/15/2017 11:[address] [facility] Alkaline Phosphatase 38(L) 40 - 150 U/L 07/15/2017 11:[address] [facility] ALT 27 0 - 50 U/L 07/15/2017 11:[address] [facility] AST 24 0 - 45 U/L 07/15/2017 11:[address] [facility] Blood specimen (specimen) VENOUS BLOOD / Unknown 07/15/2017 11:53 AM [facility] 07/15/2017 9:33 PM [facility] Cassie Perez MD LAB - BLOOD ORDERABL ES [facility] [address] [place] [address] from Last 3 Months or Most Recently Relevant to Health Maintenance Care Teams Family Caseworker Relationship Specialty Start Date End Date Vanessa Varma MD PCP - General Family Practice 05/28/13 Cassie Perez MD [address] [id number] Neurology 08/11/15 Cassie Perez MD [address] [address] Assigned Neuroscience Provider 04/28/20
--- OUTSIDE RECORDS SUMMARY | 2024-01-27 11:19 | XMS_ITS | Encounter Summary ---
Author Organization [facility] Address [address] [place] [address] Care Team Providers Care Refinery Operator Helper [employer] Name Role Phone Vanessa Varma MD Primary Care Provider + [phone] Cassie Perez MD Unavailable Cassie Perez MD Unavailable Reason for Visit * Reason Onset Date Comments Forms 01/14/2024 Received DMV(LOC ) form. Encounter Details Date Type Department Care Team (Late st Contact Info) Description 01/14/2024 Telephone [facility] [address] [facility] [address] [place] [address] Cassie Perez MD [address] [facility] [address] [place] [address] Forms (Received DMV(LOC) form.) Social History Tobacco Use Types Packs/Day Years Used Date Smoking Tobacco: Never Passive Smoke Exposure: Never Smokeless Tobacco: Never Alcohol Use Standard Drinks/Week Comments No 0 (1 standard drink = 0.6 oz pur e alcohol) PHQ-2 Answer Date Recorded PHQ-2 Score 0 12/15/2023 Adolescent Education Answer Date Record ed Getting School Help Needed Not on file 04/04 Sex and Gender Information Value Date Recorded Sex Assigned at Not on file Gender Identity Not on file Sexual Orientation Not on file documented as of this encounter Miscellaneous Notes * Telephone Encounter - Acosta, Pat, RN - 01/20/2024 2:37 PM CDT Form prepared for provider signature. * Telephone Encounter - Louie Ibarra LPN - 01/14/2024 9:03 AM CDT Received [facility] form to be completed. Form saved to [employer] [address],encounter routed. documented in this encounter Plan of Treatment Not on file documented as of this encounter Visit Diagnoses Not on filedocumented in this encounter Additional Health Concerns Assessment Noted Time PHQ-9 Depression Total Score: 5 11/30/19 23 8:10 AM CDT documented as of this encounter Care Teams Refinery Operator Helper [employer] Relationship Specialty Start Date End Date Vanessa Varma MD PCP - General Family Practice 05/28/13 Cassie Perez MD [address] [id number] Neurology 08/11/15 Cassie Perez MD [address] [facility] [address] [id number] Assigned Neuroscience Provider 04/28/20 documented as of this encounter
--- OUTSIDE RECORDS SUMMARY | 2024-01-27 11:19 | XMS_ITS | Encounter Summary ---
Author Organization [place] Address [address] 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) Social History Tobacco Use Types Packs/Day Years [...] on file documented as of this encounter Last Filed Vital Signs Vital Sign Reading Time Taken Comments Blood Pressure - - Pulse - - Temperature - - Respiratory Rate - - Oxygen Saturation - - Inhaled Oxygen Concentration - - Weight 61.2 kg (135 lb) 12/15/2023 10:09 AM CDT Height 158.8 cm (5' 2.5) 12/15/2023 10:09 AM CD T Body Mass Index 24.3 12/15/2023 10:09 AM CDT documented in this encounter Patient Instructions * Patient Instructions* Nancy Perez MD - 12/15/2023 10:30 AM CDT Continue lamotrigine 200 mg am and 100 mg 5 pm (before dinner) DMV form completion, she can drive, last seizure was 03/2009. Seizure started age [age]. She can review DMV form every 4 years. 1 year follow up documented in this encounter Progress Notes * Nancy Perez MD - 12/15/2023 10:30 AM CDT Virtual Visit Details Type of service: Video Visit Video Visit: 10: 42 am Video End: 11: 01 am Originating Location (pt. Location): Home Distant Location (provider location): Off-site [facility] Progress Note Patient: Carin Cardenas : 1945 Age: [age] year old Today's Office Visit: 12/15/2023 EPILEPSY HISTORY: Onset of seizures in 11/2005 (spells of blanking out), neuroimaging was completedand was found to have a meningioma in the left middle cranial fossa. She underwent a left frontotemporal craniotomy for meningioma excision. Subsequent, to brain surgery she had 2 seizures in the acute postoperative period. The patient was initially placed on levetiracetam monotherapy and was overly sedated on this medication and did not tolerate it well. 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 She was switched from levetiracetam to lamotrigine monotherapy and did very well on this and remained seizure-free since 03/2009. INTERVAL HISTORY: She is doing well. Carin has had no seizure since 03/2009 (loss of awareness for few minutes). She had knee replacement next week. She has basal cell carcinoma which was removed, her doctors said shedoes not need chemo and were not worried about it, she had COVID in June 2023. Overall since her last visit she is doing well she continues to have insomnia. Currently, on antiepileptic drug there is no double vision, no mood changes, no nausea, no vomiting, no abdominal pain, no rashes. No recent ER visits and no hospitalizations since last visit. She got her covid vaccine. Current antiepileptic drug: lamotrigine 200 mg am and 100 mg pm SOCIAL HISTORY: Carin is . Her is 81. She is currently driving. 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 Exercise daily. Unfortunately, she stopped working when levetiracetam was causing side effects of cognitive sedation and slowing. NEUROLOGICAL EXAMINATION: Ht 5' 2.5 (158.8 cm) Wt 135 lb (61.2 kg) BMI 24.30 kg/m?? Alert, orientated, speech is fluent, face symmetric, extra ocular movements in tact, no focal weakness ASSESSMENT: Focal seizure with impairment in awareness controlled, etiology meningioma. The patient has had great seizure control with lamotrigine. Her last seizure was in 03/2009. EEG in 2014 had epileptiform discharges in the left frontotemporal region. Since she has an abnormal MRI and abnormal EEG, I recommend that we continue lamotrigine due to higher risk for seizure recurrence (abnormal EEG). PLAN: Continue lamotrigine 200 mg am and 100 mg 5 pm (before dinner) DMV form completion, she can drive, last seizure was 03/2009. Seizure started age [age]. She can review DMV form every 4 years. 1 year follow up I spent 24 minutes in total today to provide comprehensive medical care. I spent 3 minutes writing the note and placing orders. I spent 1 minutes reviewing the chart. The rest of the time was spent with the patient in face to face interview. During this time blanco medical decisions were made with review of medical chart prior to visit, visit with patient, counseling/education, and post visit work, including documentation of note on the day of visit. I addressed all questions the patient/caregiver raised in regards to epilepsy or related medical questions. NANCY PEREZ MD documented in this encounter Nursing Notes * Vic Streeter - 12/15/2023 10:30 AM CDT Is the patient currently in the state of [place]? YES Visit mode:TELEPHONE If the visit is dropped, the patient can be reconnected by: TELEPHONE VISIT: Phone number: [phone] Will anyone else be joining the visit? NO (If patient encounters technical issues they should call [phone] How would you like to obtain your AVS? MyChart Are changes needed to the allergy or medication list? No Are refills needed on medications prescribed by this physician? 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) Localization-related (focal) (partial) epilepsy and epileptic syndromes with complex partial seizures, without mention of intractable epilepsy documented in this encounter Additional Health Concerns Assessment Noted Time PHQ-9 Depression Total Score: 5 11/30/19 23 8:10 AM CDT documented as of this encounter Care Teams School Health Aide Relationship Specialty Start Date End Date Vanessa Varma MD PCP - General Family Practice 05/28/13 Nancy Perez MD [address] [facility] [address] [place], [place] [address] Neurology 08/11/15 Nancy Perez MD [address] [facility] [address] [place], [place] [address] Assigned Neuroscience Provider 04/28/20 documented as of this encounter
--- OUTSIDE RECORDS SUMMARY | 2024-01-27 11:19 | XMS_ITS | Clinical Summary ---
Author Organization [place] Address [address] [facility] [place] [address] Care Team Providers Care Industrial Seamstress Name Role Phone Vanessa Varma MD Primary Care Provider [phone] Cassie Perez MD Unavailable Cassie Perez MD Unavailable Allergies No known active allergies Medications Medication [...] epilepsy with impairment of consciousnes s 08/11/2015 Encounters Date Type Department Care Team Description 01/14/2024 Telephone [facility] [address] [place] [address] Cassie Perez MD Forms (Received DMV(LOC) form.) 12/15/2023 10:30 AM CDT Virtual Visit [facility] [address] [place] [id number] Cassie Perez MD 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) from Last 3 Months Immunizations Name Administration Dates Next Due Flu 65+ Years 04/09/2019,04/08/2017 [id number] Novel Flu 08/08/2009 Influenza (H1N1) 08/08/2009 Influenza [...] 36.7 ??C (98 ??F) 06/18/2018 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 Respiratory Rate 12 07/15/2017 10:56 AM FARM DEMONSTRATOR Oxygen Saturation - - Inhaled Oxygen Concentration - - Weight 61.2 kg (135 lb) 12/15/2023 10:09 AM CDT Height 158.8 cm (5' 2.5) 12/15/2023 10:09 AM CD T Body Mass Index 24.3 12/15/2023 10:09 AM CDT Plan of Treatment Health Maintenance Due Date Last Done Comments ANNUAL REVIEW OF HM ORDERS 1945 TSH W/FREE T4 REFLEX 1945 LIPID 1983 RSV VACCINE ( & 60+) (1 - 1-dose 60+ series) 2003 GLUCOSE 07/15/2020 07/15/2017, 08/11/2015 FALL RISK ASSESSMENT 09/14/2021 09/14/2020, 09/15/2019, 07/15/2017 ADVANCE CARE PLANNING 07/15/2022 07/15/2017 COVID-19 Vaccine ( season) 2023 04/18/2023, 04/03/2022, 10/24/2021, Additional history exists INFLUENZA VACCINE (#1) 2024 , 04/03/2022, 03/31/2021, Additional history exists MEDICARE ANNUAL WELLNESS VISIT 09/03/2024 09/04/2023, 07/25/2022, 06/28/2021, Additional history exists DEXA 07/15/2031 07/15/2016 DTAP/TDAP/TD IMMUNIZATION (3 - Td or Tdap) 10/25/2031 10/24/2021, 04/09/2011, 12/19/2005, Additional history exists COLONOSCOPY Discontinued 10/29/2022 COLORECTAL CANCER SCREENING Discontinued ZOSTER IMMUNIZATION Completed 02/05/2023, 09/18/2022, 01/14/2012 Pneumococcal Vaccine: 65+ Years Completed 04/18/2023, 05/28/2016, 12/04/2010 PHQ-2 (once per calendar year) Completed 12/15/2023, 11/29/2022, 11/29/2022, Additional history exists CT COLONOGRAPHY Discontinued FIT Discontinued FLEX SIG Discontinued HPV IMMUNIZATION Aged Out No longer e ligible based on patient's age to complete this topic IPV IMMUNIZATION Aged Out No longer e ligible based on patient's age to complete this topic MENINGITIS IMMUNIZATION Aged Out No l onger eligible based on patient's age to complete this topic RSV MONOCLONAL ANTIBODY Aged Out No l onger eligible based on patient's age to complete this topic sDNA (Cologuard) Discontinued Procedures Procedure Name Priority Date/Time Associated Diagnosis Comments COMPREHENSIVE METABOLIC PANEL Routine 07/15/2017 11:53 AM FARM DEMONSTRATOR 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) from Last 3 Months or Most Recently Relevant to Health Maintenance Results * (ABNORMAL) Comprehensive metabolic panel (07/15/2017 11:53 AM FARM DEMONSTRATOR) Sodium 144 133 - 144 mmol/L 07/15/2017 11:08 PM [facility] Potassium 5.6(H) 3.4 - 5.3 mmol/L 07/15/2017 11:08 PM [facility] Chloride 107 94 - 109 mmol/L 07/15/2017 11:08 PM [facility] Carbon Dioxide 27 20 - 32 mmol/L 07/15/2017 11:08 PM [facility] Anion Gap 11 3 - 14 mmol/L 07/15/2017 11:08 PM [facility] Glucose 94 70 - 99 mg/dL 07/15/2017 11:08 PM [facility] Urea Nitrogen 26 7 - 30 mg/dL 07/15/2017 11:08 PM [facility] Creatinine 0.80 0.52 - 1.04 mg/dL 07/15/2017 11:08 PM [facility] GFR Estimate 70 >60 mL/min/1.7 m2 07/15/2017 11:08 PM [facility] Comment:Non GFR Calc GFR Estimate If Black 84 >60 mL/min/1.7 m2 07/15/2017 11:08 PM [facility] Comment: GFR Calc Calcium 9.7 8.5 - 10.1 mg/dL 07/15/2017 11:08 PM FARM DEMONSTRATOR [facility] Bilirubin Total 0.2 0.2 - 1.3 mg/dL 07/15/2017 11:08 PM [facility] Albumin 4.3 3.4 - 5.0 g/dL 07/15/2017 11:08 PM [facility] Protein Total 7.4 6.8 - 8.8 g/dL 07/15/2017 11:08 PM [facility] Alkaline Phosphatase 38(L) 40 - 150 U/L 07/15/2017 11:08 PM [facility] ALT 27 0 - 50 U/L 07/15/2017 11:08 PM [facility] AST 24 0 - 45 U/L 07/15/2017 11:08 PM [facility] Blood specimen (specimen) VENOUS BLOOD / Unknown 07/15/2017 11:53 AM FARM DEMONSTRATOR 07/15/2017 9:33 PM FARM DEMONSTRATOR Cassie Perez MD LAB - BLOOD ORDERABL ES [facility] [address] [place] [address] from Last 3 Months or Most Recently Relevant to Health Maintenance Care Teams Industrial Seamstress Relationship Specialty Start Date End Date Vanessa Varma MD PCP - General Family Practice 05/28/13 Cassie Perez MD [address] [id number] Neurology 08/11/15 Cassie Perez MD [address] [id number] Assigned Neuroscience Provider 04/28/20
--- OUTSIDE RECORDS SUMMARY | 2024-01-27 11:20 | XMS_ITS | Clinical Summary ---
Author Organization [facility] Address [place], [place] [address] Care Team Providers Care Dermatology Nurse Practitioner Name Role Phone Vanessa Varma MD Primary Care Prov ider Allergies No known active allergies Medications Medication Sig Dispensed Refills Start Date End Date Status MULTIVITAMIN CAP daily 0 Active ASPIRIN 81 MG TAB take 1 tablet (81mg) by oral route once daily 0 0 07/04/2008 Active cholecalciferol (VITAMIN D) 1,000 unit capsule Take 1 capsule by mouth once daily. 0 04/09/2011 Active magnesium 250 mg Tab Take 1 tablet by mouth once daily. 0 04/09/2011 Active latanoprost (XALATAN) 0.005 % ophthalmic solution 1 Drop at bedtime. 2.5 mL 0 02/06/2012 Active docusate (COLACE) 100 mg capsule Take 1 capsule by mouth 2 times daily if needed for Constipation. 0 06/21/2019 Active blood sugar diagnostic (Ascensia CONTOUR) stripIndications:Diab etes mellitus due to underlying condition with ketoacidosis without coma, with long-term current use of insulin (HC) Dispense test strips covered by the patient insurance. Test 1 times per day as needed. HOLD until patient calls 90 Each 3 06/28/2021 Active diabetic supplies, miscellan.Indications :Diabetes mellitus due to underlying condition with ketoacidosis without coma, with long-term current use of insulin (HC) HOLD until patient calls 1 Kit 06/28/2021 Active fenofibrate micronized (LOFIBRA) 134 mg capsuleIndications:El evated triglycerides with high cholesterol Take 1 Capsule (134 mg) by mouth once daily with a meal. For cholesterol. 90 Capsule 4 09/04/2023 Active lamoTRIgine (LAMICTAL) 100 mg tabletIndications:Sei zure disorder (HC) TAKE 2 TABLETS BY MOUTH EVERY MORNING AND 1 TABLET EVERY EVENING 90 Tablet 3 09/04/2023 Active levothyroxine (SYNTHROID) 25 mcg tabletIndications:Hyp othyroidism, unspecified type Take 1 Tablet (25 mcg) by mouth once daily. 90 Tablet 3 09/04/2023 Active metFORMIN (GLUCOPHAGE) 500 mg tabletIndications:Amy betes mellitus due to underlying condition with ketoacidosis without coma, with long-term current use of insulin (HC) Take 1 Tablet (500 mg) by mouth once daily with a meal. 90 Tablet 4 09/04/2023 Active metoprolol succinate (TOPROL XL) 50 mg sustained-release tabletIndications:Hyp ertension, unspecified type Take 2 Tablets (100 mg) by mouth once daily. Dose increase as of 07/25/2022. 180 Tablet 4 09/04/2023 Active triamterene-hydrochlo rothiazide, 37.5-25 mg, (DYAZIDE) 37.5-25 mg capsuleIndications:Hy pertension, unspecified type Take 1 Capsule by mouth every morning. 90 Capsule 4 09/04/2023 Active lancets (Microlet Lancet)Indications:Ty pe 2 diabetes mellitus without complication, without long-term current use of insulin (HC) Testing daily. FAST CLICK Accu-check please 90 Each 09/04/2023 Active blood sugar diagnostic (Accu-Chek Guide test strips) stripIndications:Type 2 diabetes mellitus without complication, without long-term current use of insulin (HC) Testing 1 time per day. 100 Each 3 09/04/2023 Active melatonin 3 mg tablet Take 1 Tablet (3 mg) by mouth at bedtime. 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 08/11/2015 Osteopenia 05/20/2014 Overview: 05/2014 spine decreased hips stable repeat 2 years 2017 repeat 3-5 years Type 2 diabetes mellitus wit hout complication, without long-term current use of insulin 05/11/2013 Seizure disorder 04/08/2013 Overview: After meningeoma surgery None since 2008 HTN (hypertension) 09/27/2008 Overview: Updated by system to replace inactive record Other specified disease of white blood cells Unspecified hypothyroidism 11/28/2005 Anxiety state, unspecified 11/28/2005 Other and unspecified hyperlipidemia 11/28/2005 Personal history of colonic polyps 11/28/2005 Overview: tubular adenoma ' Colonoscopy 02/2012 normal repeat in 5 years Colonoscopy 04/2017 normal repeat in 5 years. PEG 8L, adult scope Colonoscopy 10/2022 normal, no follow up needed GLAUCOMA 11/28/2005 Resolved Problems Problem Noted Date Diagnosed Date Resolved Date Sacroiliitis 07/25/2022 07/25/2022 Mood Disorder, NOS rule out Major Depression, Single episode or recurrent; and Dysthymia 01/22/2009 07/25/2022 Type II or unspecified type diabetes mellitus with unspecified complication, not stated as uncontrolled 11/25/2008 05/11/2013 MENINGIOMA 11/29/2005 09/10/2022 Obesity, unspecified 11/28/2005 024 Encounters Date Type Department Care Team Description 12/10/2023 Orders Only [facility] [address] [place] [address] Vanessa Varma MD 1 scan: (1-Ord) NFLD-EKG-12/09/23 12/09/2023 7:50 AM CDT Preop Visit [facility] [address] [place] [address] Vanessa Varma MD Preoperative Exam (DOS 12/24/23- L knee replacement [facility] / ) 12/09/2023 Travel from Last 3 Months Immunizations Name Administration Dates Next Due AMB INFLUENZA IIV3 (AGE 65+ YRS) PF (Flu Clinic Only) 04/09/2019 AMB Influenza, IIV3 (Age >=3 years)(Flu Clinic Only) 04/27/2013,05/02/2008 AMB Influenza, IIV4 PF (=>6 mos Flulaval,Fluzone Fluarix)(Flu Clinic Only) 04/10/2018 Amb Influenza, Inactivated A IIV4 (Age 65+ Years) Preserv Free 03/27/2020 COVID-19 vaccine (CoPatient NTOff & Away 30mcg/0.3mL) PF, MDV 03/31/2021,09/09/2020,08/19/2020 Influenza A (H1N1), Inactivated 08/08/2009 Influenza A (H1N1), Inactiva ramy (Age >=3 Years) 08/08/2009 Influenza, High-dose Inactivated 05/28/2016,05/07,05/20/2014 Influenza, High-dose Quadriv alent Inactivated 02/05/2023,04/03/2022,03/31/2021,2019 Influenza, IIV3 (Age 6-35 mos) 04/09/2011,2008 Influenza, IIV3 (Age >=3 years) 04/27/20 13,04/07/2012,04/09/2011,2009,05/02/2008,05/28/2005,06/19/2004 Influenza, Inactivated AIIV4 (Age 65+ Years) Preserv Free 03/31/2021 Influenza, Inactivated IIV3 (Age 65+ Years) Preserv Free 04/08/2017 Pneumococcal Poly,23-Valent (Pneumovax) 12/04/2010 Pneumococcal conj 13-Valent (Prevnar 13) 05/28/2016 Td (Age >=7 Years) 07/21/2005 Td, Preservative Free (age > = 7 Years) 12/19/2005,07/21/2005 Tdap 10/24/2021,04/09/2011 Zoster (Shingrix-RZV, recombinant) 02/05/2023, Zoster (Zostavax-ZVL, live) 01/14/2012 Family History Medical History Relation Name Comments Heart Disease Brother 1 Vincent Bypass Hyperlipidemia Brother 1 Vincent Trigyceride Other Brother 1 Vincent encephalitis as child and now has hydrocephalis Arthritis Brother 2 Serafin Hyperlipidemia Brother 2 Serafin Hypertension Brother 2 Serafin Hyperlipidemia Brother 3 Reza Cancer-colon Brother 4 Stevie Rectal Hypertension Brother 4 Stevie Good Health Daughter 1 Good Health Daughter 2 Heart Disease Father [place] x2-3 o f last one Hyperlipidemia Father Hypertension Father Heart Disease Mother chf Hypertension Mother Other Mother Dementia Cancer Son appendex age 19 healthy now Anesthesia Problem No Family History Blood Disease No Family History Cancer-breast No Family History Cancer-prostate No Family History Relation Name Status Comments Brother 1 Vincent Brother 2 Serafin Brother 3 Reza Brother 4 Stevie Daughter 1 Alive Daughter 2 Alive Father (Age 58) mi Mother (Age 87) chf and de memtia Son Social History Tobacco Use Types Packs/Day Years Used Date Smoking Tobacco: Never Smokeless Tobacco: Never Tobacco Cessation:Counseling Given: Not Answered Alcohol Use Standard Drinks/Week Comments No 0 (1 standard drink = 0.6 oz pur e alcohol) PHQ-2 Answer Date Recorded PHQ-2 TOTAL SCORE 0 09/04/2023 Social Connections Answer Date Recorded Frequency of Communication with Friends and Fami ly 0 03/31/2023 Financial Resource Strain Answer Date R ecorded Difficulty of Paying Living Expenses 3 03/31/2023 Difficulty of Paying Living Expenses Not on file 03/31/2023 Food Insecurity Answer Date Recorded Worried About Running Out of Food in the Last Ye ar 1 03/31/2023 Transportation Needs Answer Date Record ed Lack of Transportation (Medical) 1 03/31/2023 Housing Stability Answer Date Recorded Unable to Pay for Housing in the Last Year 1 03/31/2023 Sex and Gender Information Value Date Recorded Sex Assigned at Not on file Gender Identity Not on file Sexual Orientation Not on file Obstetrics History Para Term AB IAB SAB Ectopic Multiple Livin g Live Births 3 3 3 3 Date Outcome GA Total Labor Labor/2nd/3rd Weight Sex Type Anes PTL Ellen A1 A5 Name Clin Term Term Term Last Filed Vital Signs Vital Sign Reading Time Taken Comments Blood Pressure 119/71 12/09/2023 7:53 AM CDT Pulse 63 12/09/2023 7:53 AM CDT Temperature 36.6 ??C (97.9 ??F) 12/09/2023 7:53 AM CD T Respiratory Rate 16 10/29/2022 12:50 PM CDT Oxygen Saturation 97% 12/09/2023 7:53 AM CDT Inhaled Oxygen Concentration - - Weight 61.2 kg (135 lb) 12/09/2023 7:53 AM CDT Height 158.1 cm (5' 2.25) 12/09/2023 7:53 AM CD T Body Mass Index 24.49 12/09/2023 7:53 AM CDT Plan of Treatment Health Maintenance Due Date Last Done Comments COVID-19 vaccine series () 08/19/2023 04/18/2023, 04/03/2022, 10/24/2021, Additional history exists Influenza for age 65+ 03/07/2024 02/05/2023 , 04/03/2022, 03/31/2021, Additional history exists Depression screening for age 12+ 09/03/2024 09/04/2023, 07/25/2022, 06/28/2021, Additional history exists Medicare Wellness for age 65+ 09/04/2024, 07/25/2022, 06/28/2021, Additional history exists BMI (ht and wt on same day) for age 18+ 12/08/2024 12/09/2023, 09/04/2023, 07/25/2022, Additional history exists Tetanus booster 10/25/2031 10/24/2021, 10/2010, 12/19/2005, Additional history exists Pneumococcal series for age 65+ Completed 6, 12/04/2010 DEXA/DXA scan for age 65+ Completed 2016, 06/09/2014, 04/23/2012, Additional history exists Tdap Completed 10/24/2021, 04/09/2011 Zoster (shingles) series for age 50+ Completed 02/05/2023, 09/18/2022, 01/14/2012 Medical Devices 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 Shelf Expiration Date Model / Serial / Lot Plate Timesh 4mm 2 Hole Timesh - [id number] Implanted:Qty: 1 on 12/23/2005 at [facility] Neuro Implants Left: Cranium [employer]ANEK 015-040# / / Plate Timesh 8mm 2 Hole [id number] - [id number] Implanted:Qty: 1 on 12/23/2005 at [facility] Neuro Implants Left: Cranium [employer] 015-042# / / Magdalena Hole 18mm [id number] - [id number] Implanted:Qty: 1 on 12/23/2005 at [facility] Neuro Implants Left: Skull [employer]ANEK [id number]- 18# / / Screw 1.6x4.0mm [employer] [id number] - [id number] Implanted:Qty: 17 on 12/23/2005 at [facility] Neuro Implants Left: Skull [employer]ANEK [id number]# / / Pericardium Bovine/Pc-0404n - [id number] Implanted:Qty: 1 on 12/23/2005 at [facility] Open Heart Implants Left: Cranium [employer] PC-0404N # / / [id number] Durepair 1x3 - [id number] Implanted:Qty: 1 on 12/23/2005 at [facility] [employer] [id number]# / / [id number] Procedures Procedure Name Priority Date/Time Associated Diagnosis Comments EKG 12 LEAD Routine 12/10/2023 9:59 AM CDT Preop examination OR READING EKG - NO CHARGE, COMP ONLY Routine 12/10/2023 9:57 AM CDT Preop examination HEMOGLOBIN Routine 12/09/2023 8:53 AM CDT Preop examination POTASSIUM Routine 12/09/2023 8:53 AM CDT Preop examination XR DXA BONE DENSITY 2 SITES AXIAL Routine 07/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 MCV 95 80 - 100 fL 12/09/2023 10:[address] [facility] Blood BLOOD SPECIMEN / Unknown Venipuncture / Unknown 12/09/2023 8:53 AM CDT 12/09/2023 10:37 AM CDT Vanessa Varma MD HEMATOLOGY [facility] [address] [place] [address], * POTASSIUM (12/09/2023 8:53 AM CDT) POTASSIUM 4.5 3.5 - 5.1 mmol/L 12/09/2023 6:17 PM CDT [facility] Blood BLOOD SPECIMEN / Unknown Venipuncture / Unknown 12/09/2023 8:53 AM CDT 12/09/2023 8:53 AM CDT Vanessa Varma MD CHEMISTRY [facility] 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
[2024-01-27 11:28] LABS: Basophils Absolute Auto 0.09 K/uL (0.00-0.30); Basophils Percent Auto 1.3 % (0.0-3.0); Eosinophils Absolute Auto 0.07 K/uL (0.00-0.50); Hematocrit 38.4 % (33.0-51.0); Hemoglobin* 12.5 gm/dL (12.0-16.0); Immature Granulocytes Abs Auto 0.01 K/uL (0.00-0.30); Immature Granulocytes Pct Auto 0.1 %; Lymphocytes Percent Auto 13.6 % (20-44); Mean Corpuscular HGB Conc 33 gm/dL (32-36); Mean Corpuscular Hemoglobin 32 pg (26-34); Mean Corpuscular Volume 98 fL (80-100); Monocytes Percent Auto 7.8 % (0.0-11.0); Neutrophils Percent Auto 76.2 % (42.0-72.0); Platelet Count* 363 K/uL (140-440); RDW Coefficient of Variation % 13.1 % (11.5-15.5); Red Blood Count 3.94 m/uL (4.00-5.20); White Blood Count* 7.07 K/uL (4.50-11.00)
[2024-01-27 11:33] LABS: Slide Review Reflex No
[2024-01-27 11:55] LABS: Chloride* 101 mmol/L (96-114)
[2024-01-27 11:56] LABS: Potassium* 4.3 mmol/L (3.6-5.1); Sodium* 134 mmol/L (135-149)
[2024-01-27 11:58] LABS: Creatinine* 0.6 mg/dL (0.5-1.5); Est. Creatinine Clearance* 37.12; Estimated Glomerular Filt Rate 91 ml/min
[2024-01-27 11:59] LABS: Anion Gap 6 mEq/L (7-15); Blood Urea Nitrogen* 28 mg/dL (7-30); Calcium* 9.7 mg/dL (8.4-10.6); Carbon Dioxide* 27 mmol/L (20-32); Glucose* 115 mg/dL (60-115)
== END 2024-01-27 12:37 | disposition home or self-care (01) ==
PROVIDERS: Emergency Provider Emergency Medicine Emergency Medical Services; PCP Family Medicine
DX: R41.82 Altered mental status, unspecified (principal)
CPT/HCPCS: 36415; 80048; 85025; 99283; 99284

== ENCOUNTER 2024-02-24 09:00 | Outpatient (RCR) | payer MEDICARE, OTHER, SELFPAY ==
--- NOTE | 2023-12-16 17:29 | PT.OPEX ---
[facility] Start: 12/16/23 17:09 Freq: Status: Active Protocol: Document 12/16/23 17:09 PALAK (Rec: 12/16/23 17:24 PALAK [email or web address]) E-signed By Freida Patel DPT Physical Therapy Outpatient Evaluation Insurance Information Recert Due Date 03/15/24 Insurance Name [employer],Medicare B Medical Diagnosis L knee OA L TKA 12/24/23 Treating Diagnosis L knee pain, impaired L knee ROM, impaired L Knee/LE mobility/strength, limping/ antalgic gait, limited tolerance for standing/walking /stairs Subjective Subjective Patient reports chronic L Knee pain leading up to L TKA scheduled for 12/24/23. Patient had recent PT for her knee pain but due to ongoing pain issues and limited progress in PT is now scheduled for a TKA next week. Patient comes to PT with her spouse. He is able to assist her as needed after surgery. She has not been using an AD. States she has a cane to use after surgery but will need a FWW. Patient lives in a split entry home with 6-8 stairs up/down to upper level and lower level. She is planning to stay on the upper level. Patient/spouse reports 3 stairs to enter the home from the deck and then 6-8 stairs up to the upper level. If patient enters the home through the garage she would be in the lower level and need to perform 12-16 stairs up to the upper level (split entry) . She has been negotiating stairs with step to pattern due to L knee pain/weakness. L knee pain rated 5/10. Date of Last Physician Visit 11/11/23 Date of Surgery (If applicable) 12/24/23 Current Work Status Retired Precautions Treatment Precautions/Contraindications HTN, DM, cancer, epilepsy, OA Assessment Assessment/Impression Patient is an 78 year old with chronic L knee pain leading up to L TKA scheduled for 12/23. Patient was seen in PT recently for knee pain but progress was limited and she is now scheduled for TKA next week. She admits she hasn't continued with her HEP. She is seen in PT today for pre-op session to provide education/ information on upcoming TKA surgery, safety information/HO , equipment instruction including use of FWW, and instruction in TKA exercises. Handouts issued for exercises , patient to perform them leading up to surgery. Reviewed PT/OT plan during hospital stay and patient is scheduled for OP PT post op. Patient/spouse report living in a split entry home with 6-8 stairs up/down to upper/lower levels. Stairs to the upper level have one railing on the L when going up. Stairs to the lower level have railing on the R when going up. Patient is planning to stay on the upper level. If she enters through the garage she would be on the lower level. Patient has 3 stairs to enter the home from the deck and then 6-8 stairs to the upper level. Bathroom has a tub shower. Patient has a tub bench to use, sit and scoot across. They have a commode chair to place over the toilet . Spouse is available to assist as needed after surgery . Patient/spouse questions answered this session. Patient would benefit from skilled PT for pain/sx management, improved knee ROM, improved knee/LE mobility/ strength, improved gait, balance/proprioception training, and establishment of HEP. PT goals will be updated for TKA rehab goals after surgery. Plan of Care Rehabilitation Potential Good Physical Therapy Goals 1. Patient will be educated in TKA pre/post-op safety, mobility, and exercises with HOs provided within one visit with patient returning to PT for post op treatment after L TKA surgery on 12/24/23. PT goals will be updated to TKA rehab goals when patient returns post op. Coordination/Communication With Referral Source Treatment Plan/Direct Interventions Gait Training,Manual Therapy, Therapeutic Exercises Frequency/Duration one pre-op PT session 2x/week post op Patient Will Be Discharged From Therapy Completion of LTG(s),Skills Plateau,Independent w/HEP, Independently Progressing Evaluation Billing Untimed Code Treatment Minutes 45 Complexity Moderate Certification Information Initial Certification Date 12/16/23 Ending Certification Date 03/15/24 Provider Signature Required Yes Provider Signature Shows Agreement With POC & Medical Necessity Physician NPI Number Write NPI# Here Physician Comment/Change : Physician Signature & Date Requested Please Sign/Date Here
== END 2024-06-23 23:59 | disposition home or self-care (01) ==
PROVIDERS: Visit Provider Orthopaedic Surgery Sports Medicine
DX: M17.12 Unilateral primary osteoarthritis, left knee (principal); Z96.652 Presence of left artificial knee joint; M25.562 Pain in left knee; Z74.09 Other reduced mobility; R26.89 Other abnormalities of gait and mobility; Z51.89 Encounter for other specified aftercare
CPT/HCPCS: 97110; 97116; 97162; 97164

== ENCOUNTER 2025-03-15 12:26 | Outpatient (CLI) | payer MEDICARE, OTHER, SELFPAY | END 2025-03-15 12:27 | disposition home or self-care (01) | LOC: NFLDUCREF 12:27 | PROVIDERS: PCP Family Medicine; Visit Provider Physician Assistant | DX: R39.15 Urgency of urination (principal); R19.15 Other abnormal bowel sounds | CPT/HCPCS: 87086 ==